=== PATIENT | female | born 1985 | race Two or more races ===

== ENCOUNTER 2020-01-28 18:03 | Emergency (ER) | payer SELFPAY ==
[~2020-01-28] VITALS: Ht 157.5 cm; Wt 60.0 kg
[2020-01-28 19:16] VITALS: BP 141/89
[2020-01-28] MEDS ORDERED: AMOXICILLIN/POTASSIUM CLAVULANATE 875/125MG TAB PO ONE (20:30)
[2020-01-28] MEDS ORDERED: IBUPROFEN 600MG TABLET PO ONE (20:30)
[2020-01-28] MEDS ORDERED: HYDROCODONE/ACETAMINOPHEN 5/325MG TABLET PO ONE (20:30)
== END 2020-01-28 21:37 | disposition home or self-care (01) ==
LOC: ER 18:03
DX: K08.89 Other specified disorders of teeth and supporting structures (principal); K02.9 Dental caries, unspecified
CPT/HCPCS: 99284